=== PATIENT | female | born 1985 | race Caucasian/White ===

== ENCOUNTER 2017-11-16 11:04 | Inpatient (IN) | payer OTHER ==
[~2017-11-16] VITALS: Ht 172.7 cm; Wt 70.5 kg
[~2017-11-16 11:04] MED LIST: BCP; LORAZEPAM0.5 MG PO; NAPROSYN500 MG PO; PROZAC10 MG PO; ZOFRAN ODT4 MG PO
[2017-11-16 12:30] LABS: BASOPHIL (%) 0.4 % (0-1); EOSINOPHIL (%) 1.2 % (0-5); EOSINOPHIL COUNT 0.1 K/uL (0-0.3); HEMATOCRIT 41.7 % (36.0-46.0); HEMOGLOBIN 14.4 G/DL (11.9-15.5); IMMATURE GRANULOCYTE (%) 0.2 % (0.0-0.7); LYMPHOCYTE (%) 26.2 % (15-42); LYMPHOCYTE COUNT 1.3 K/uL (1.0-2.8); MCH 29.4 PG (29.0-34.0); MCHC 34.5 G/DL (30.0-36.0); MCV 85.1 FL (83-99); MONOCYTE (%) 6.7 % (3-12); MONOCYTE COUNT 0.3 K/uL (0-0.8); NEUTROPHIL (%) 65.3 % (45-76); NEUTROPHIL COUNT 3.2 K/uL (1.8-6.4); PLATELET COUNT 254 K/uL (156-360); RBC DIS.WIDTH-CV 12.6 % (11.8-14.6); RBC DIS.WIDTH-SD 38.8 % (39-53); WHITE BLOOD COUNT 4.9 K/uL (4.1-10.2)
[2017-11-16 12:39] LABS: CHLORIDE 106 mEq/L (99-109); POTASSIUM 4.3 mEq/L (3.7-5.4); SODIUM 140 mEq/L (136-147)
[2017-11-16 12:40] LABS: GLUCOSE 94 mg/dL (70-99)
[2017-11-16 12:44] LABS: CREATININE 0.8 mg/dL (0.6-1.3); GFR ESTIMATE (CALCULATED) > 59 mL/min/; SERUM ETHYL ALCOHOL < 10 mg/dL
[2017-11-16 12:45] LABS: UREA NITROGEN (BUN) 8 mg/dL (9-23)
[2017-11-16 17:26] VITALS: BP 136/81
[2017-11-17 08:07] VITALS: BP 137/76
[2017-11-17 16:19] VITALS: BP 127/89
[2017-11-18 08:13] VITALS: BP 141/72
[2017-11-18 15:26] VITALS: BP 123/86
[2017-11-19 09:34] VITALS: BP 127/71
[2017-11-19 16:11] VITALS: BP 135/83
[2017-11-20 07:47] VITALS: BP 150/82
[2017-11-20 16:24] VITALS: BP 123/74
[2017-11-21 07:50] VITALS: BP 110/59
[2017-11-21 15:21] VITALS: BP 135/82
[2017-11-22 07:50] VITALS: BP 126/73
[2017-11-22 15:25] VITALS: BP 130/79
[2017-11-23 07:54] VITALS: BP 118/70
[2017-11-23 16:42] VITALS: BP 124/82
[2017-11-24 07:55] VITALS: BP 127/83
[2017-11-24 16:20] VITALS: BP 128/83
[2017-11-24 21:29] VITALS: BP 126/55
[2017-11-25 08:01] VITALS: BP 119/72
[2017-11-25] MEDS ORDERED: RISPERDAL2 MG PO (10:17)
== END 2017-11-25 11:21 | disposition home or self-care (01) | DRG 885 ==
LOC: EME 11:04 → EDOF 14:25 → 1WEST 14:25 → ENRESERV 17:12 → 1WEST 17:12
PROVIDERS: Emergency Medicine
DX: F20.0 Paranoid schizophrenia (principal); F32.9 Major depressive disorder, single episode, unspecified; F41.9 Anxiety disorder, unspecified; F17.210 Nicotine dependence, cigarettes, uncomplicated
CPT/HCPCS: 80048; 81003; 85025; 90837; 97150 GO; 97166 GO; 99281; 99285; G0480